=== PATIENT | female | born 1975 | race Caucasian/White ===

== ENCOUNTER 2017-04-16 19:04 | Emergency (ER) | payer SELFPAY ==
[2017-04-16] VITALS (15 sets, daily range): BP systolic 121–140; BP diastolic 56–84
[~2017-04-16] VITALS: Ht 172.7 cm; Wt 63.5 kg
[~2017-04-16 19:04] MED LIST: DiphenhydrAMINE 50mg/ml Inj IM ONE; Haloperidol 5mg/ml Inj IM ONE; LORazepam Inj 2mg/ml 1ml IM ONE
[2017-04-16] MEDS ORDERED: Haloperidol 5mg/ml Inj IM ONE (20:15)
[2017-04-16 21:14] LABS: BASOPHILS % (AUTO) 1.3 % (0.0-2.0); LYMPHOCYTES % (AUTO) 28.1 % (20.0-45.0); MEAN CORPUSCULAR HEMOGLOBIN 32.9 PG (27.0-31.0); MEAN CORPUSCULAR HGB CONC 33.1 G/DL (32.0-36.0); MEAN CORPUSCULAR VOLUME 99 FL (80-99); MEAN PLATELET VOLUME 7.3 FL (6.5-10.1); MONOCYTES % (AUTO) 6.7 % (1.0-10.0); NEUTROPHILS % (AUTO) 62.8 % (45.0-75.0); PLATELET COUNT 336 K/UL (150-450); RED BLOOD COUNT 4.13 M/UL (4.20-5.40); WHITE BLOOD COUNT 8.2 K/UL (4.8-10.8)
[2017-04-16 21:29] LABS: ACETAMINOPHEN < 10 ug/mL (10-30); ALANINE AMINOTRANSFERASE 11 U/L (3-33); ALBUMIN/GLOBULIN RATIO 1.4 (1.0-2.7); ALCOHOL < 10 mg/dL; ANION GAP 16 (5-15); ASPARTATE AMINO TRANSFERASE 15 U/L (5-40); CALCIUM 9.7 mg/dL (8.6-10.2); CARBON DIOXIDE 24 mEQ/L (20-30); CHLORIDE 99 mEQ/L (98-107); GLOMERULAR FILTRATION RATE > 60 mL/min (>60); HEMOLYSIS 4; POTASSIUM 3.8 mEQ/L (3.4-4.9); SODIUM 139 mEQ/L (135-145); TOTAL PROTEIN 7.3 g/dL (6.6-8.7)
--- NOTE | 2017-04-16 22:48 | Emergency Room Report ---
History of Present Illness General Chief Complaint: Altered Level of Consciousness Source: Patient, EMS (Yobany Vargas M.D.) Present Illness HPI The patient was brought in by EMS. Police were called them because the patient was walking in traffic on the [facility]. She was exposing herself and nearly naked. When she was arrested she stated she was diabetic, had chest pain and need medical evaluation. Therefore she was brought here. The patient refuses to answer questions with me and is screaming that she wants to go. She denies suicidal or homicidal ideation. She claims to be diabetic and . She reports that she has a schizoaffective disorder with bipolar tendencies. She denies suicidal or homicidal ideation at this time. Her history is quite questionable because she has disorganized thoughts. (Yobany Vargas M.D.) Allergies: Coded Allergies: UNABLE TO ASSESS (Unverified , 04/16/17) Patient History Limited by: medical condition Past Medical History: see triage record Now: No Reviewed Nursing Documentation: PMH: Agreed, PSxH: Agreed (Yobany Vargas M.D.) Nursing Documentation-PMH Past Medical History: No Stated History (Yobany Vargas M.D.) Review of Systems All Other Systems: negative except mentioned in HPI - question veracity (Yobany Vargas M.D.) Physical Exam Vital Signs Date Time Temp Pulse Resp B/P Pulse Ox O2 Delivery O2 Flow Rate FiO2 04/16/17 18:50 101 16 137/90 99 Room Air Sp02 EP Interpretation: reviewed, normal General Appearance: non-toxic, other - agitated, yelling, GCS 14, dishevelled Head: normocephalic, atraumatic Eyes: bilateral eye PERRL, bilateral eye Scleral Injection ENT: moist mucus membranes Neck: supple Respiratory: lungs clear, normal breath sounds Cardiovascular #1: regular rate, rhythm Cardiovascular #2: 2+ radial (R) Gastrointestinal: normal inspection, normal bowel sounds, non tender, no mass, non-distended, scaphoid Musculoskeletal: back normal, gait/station normal, normal range of motion Neurologic: alert, motor strength/tone normal, DTRs symmetric, sensory intact, oriented - X2 Psychiatric: no suicidal/homicidal ideation, other - delusional, abusive, yelling, not respond to de-escalation measures Skin: warm/dry, other - solarization, some picking lesions (Yobany Vargas M.D.) Medical Decision Making Diagnostic Impression: Primary Impression: Psychosis Qualified Codes: F29 - Unspecified psychosis not due to a substance or known physiological condition Additional Impression: Amphetamine abuse ER Course The patient presents with bizarre behavior and violence. Differential includes exacerbation of schizoaffective disorder, drug ingestion, elect right abnormalities amongst others. The patient is violence and does not respond escalation. She needs to be sedated. In orders for this to happen at this time she also needs to have behavioral restraints applied until sedation is achieved. Reevaluate with laboratory including urinalysis and drug screen. She is a nonfocal neurologic exam at this time and CT is not indicated as there is no evidence of any head trauma. Dr. Emery evaluated the patient and stated that she felt that the patient was continued to have high levels of antipsychotics to sedate her. She felt the patient was more exacerbation of schizophrenia and suggested the patient be placed on a hold. Patient may need to be reevaluated after her she is more coherent. Patient is a 5150 by [employer]. Tox + for amphetamines. Signed out to Dr. Caceres. Laboratory Tests Test 04/16/17 20:48 04/16/17 22:28 White Blood Count 8.2 K/UL (4.8-10.8) Red Blood Count 4.13 M/UL (4.20-5.40) L Hemoglobin 13.6 G/DL (12.0-16.0) Hematocrit 41.0 % (37.0-47.0) Mean Corpuscular Volume 99 FL (80-99) Mean Corpuscular Hemoglobin 32.9 PG (27.0-31.0) H Mean Corpuscular Hemoglobin Concent 33.1 G/DL (32.0-36.0) Red Cell Distribution Width 12.0 % (11.6-14.8) Platelet Count 336 K/UL (150-450) Mean Platelet Volume 7.3 FL (6.5-10.1) Neutrophils (%) (Auto) 62.8 % (45.0-75.0) Lymphocytes (%) (Auto) 28.1 % (20.0-45.0) Monocytes (%) (Auto) 6.7 % (1.0-10.0) Eosinophils (%) (Auto) 1.0 % (0.0-3.0) Basophils (%) (Auto) 1.3 % (0.0-2.0) Sodium Level 139 mEQ/L (135-145) Potassium Level 3.8 mEQ/L (3.4-4.9) Chloride Level 99 mEQ/L (98-107) Carbon Dioxide Level 24 mEQ/L (20-30) Anion Gap 16 (5-15) H Blood Urea Nitrogen 20 mg/dL (7-23) Creatinine 1.0 mg/dL (0.5-0.9) H Estimate Glomerular Filtration Rate > 60 mL/min (>60) Glucose Level 92 mg/dL (74-106) Calcium Level 9.7 mg/dL (8.6-10.2) Total Bilirubin 0.4 mg/dL (0.0-1.2) Aspartate Amino Transferase (AST) 15 U/L (5-40) Alanine Aminotransferase (ALT) 11 U/L (3-33) Alkaline Phosphatase 60 U/L (35-104) Total Creatine Kinase 204 U/L (26-140) H Total Protein 7.3 g/dL (6.6-8.7) Albumin 4.3 g/dL (3.5-5.2) Globulin 3.0 g/dL Albumin/Globulin Ratio 1.4 (1.0-2.7) Salicylates Level < 1 mg/dL (10-30) L Acetaminophen Level < 10 ug/mL (10-30) L Serum Alcohol < 10 mg/dL Urine HCG, Qualitative Negative Urine Opiates Screen Negative (NEGATIVE) Urine Barbiturates Screen Negative (NEGATIVE) Phencyclidine (PCP) Screen Negative (NEGATIVE) Urine Amphetamines Screen Positive (NEGATIVE) H Urine Benzodiazepines Screen Negative (NEGATIVE) Urine Cocaine Screen Negative (NEGATIVE) Urine Marijuana (THC) Screen Negative (NEGATIVE) (Yobany Vargas M.D.) ER Course Hospital Course 41 year-old female presents to ED for evaluation after running and streets naked Differential diagnoses include: Major depressive disorder, unspecified psychosis , EtOH abuse, drug abuse Clinical course Initially seen and evaluated by Dr. Vargas; please see his note for full history and physical She initially very agitated; required Haldol and Ativan for sedation Labs-electrolytes normal, aspirin/Tylenol levels normal, EtOH level normal, U. tox +amphetamines patient is on 5150 hold Patient is medically cleared and pending psychiatric evaluation. i. I feel this is a highly complex case requiring extensive working including EKG/Rhythm strip, Xray/CT/US, Blood/urine lab work, repeat exams while in ED, and administration of strong opiates/narcotics for pain control, admission to hospital or close patient follow up. Labs Test 04/16/17 20:48 04/16/17 22:28 White Blood Count 8.2 K/UL (4.8-10.8) Red Blood Count 4.13 M/UL (4.20-5.40) Hemoglobin 13.6 G/DL (12.0-16.0) Hematocrit 41.0 % (37.0-47.0) Mean Corpuscular Volume 99 FL (80-99) Mean Corpuscular Hemoglobin 32.9 PG (27.0-31.0) Mean Corpuscular Hemoglobin Concent 33.1 G/DL (32.0-36.0) Red Cell Distribution Width 12.0 % (11.6-14.8) Platelet Count 336 K/UL (150-450) Mean Platelet Volume 7.3 FL (6.5-10.1) Neutrophils (%) (Auto) 62.8 % (45.0-75.0) Lymphocytes (%) (Auto) 28.1 % (20.0-45.0) Monocytes (%) (Auto) 6.7 % (1.0-10.0) Eosinophils (%) (Auto) 1.0 % (0.0-3.0) Basophils (%) (Auto) 1.3 % (0.0-2.0) Sodium Level 139 mEQ/L (135-145) Potassium Level 3.8 mEQ/L (3.4-4.9) Chloride Level 99 mEQ/L (98-107) Carbon Dioxide Level 24 mEQ/L (20-30) Anion Gap 16 (5-15) Blood Urea Nitrogen 20 mg/dL (7-23) Creatinine 1.0 mg/dL (0.5-0.9) Estimat Glomerular Filtration Rate > 60 mL/min (>60) Glucose Level 92 mg/dL (74-106) Calcium Level 9.7 mg/dL (8.6-10.2) Total Bilirubin 0.4 mg/dL (0.0-1.2) Aspartate Amino Transf (AST/SGOT) 15 U/L (5-40) Alanine Aminotransferase (ALT/SGPT) 11 U/L (3-33) Alkaline Phosphatase 60 U/L (35-104) Total Creatine Kinase 204 U/L (26-140) Total Protein 7.3 g/dL (6.6-8.7) Albumin 4.3 g/dL (3.5-5.2) Globulin 3.0 g/dL Albumin/Globulin Ratio 1.4 (1.0-2.7) Salicylates Level < 1 mg/dL (10-30) Acetaminophen Level < 10 ug/mL (10-30) Serum Alcohol < 10 mg/dL Urine HCG, Qualitative Negative Urine Opiates Screen Negative (NEGATIVE) Urine Barbiturates Screen Negative (NEGATIVE) Phencyclidine (PCP) Screen Negative (NEGATIVE) Urine Amphetamines Screen Positive (NEGATIVE) Urine Benzodiazepines Screen Negative (NEGATIVE) Urine Cocaine Screen Negative (NEGATIVE) Urine Marijuana (THC) Screen Negative (NEGATIVE) (ELIZABETH CACERES M.D.) EKG Diagnostic Results Rate: normal Rhythm: NSR ST Segments: no acute changes (Yobany Vargas M.D.) Rhythm Strip Diag. Results EP Interpretation: yes Rhythm: NSR, no PVC's, no ectopy (Yobany Vargas M.D.) Status: improved (Yobany Vargas M.D.) Status: improved (ELIZABETH CACERES M.D.) Disposition: XFER TO PSYCH HOSP/UNIT Condition: Serious Referrals: NOT CHOSEN JATINDER/,REFERRING (PCP) Yobany Vargas M.D. Apr 16, 2017 22:48 ELIZABETH CACERES M.D. Apr 17, 2017 01:22
[2017-04-17 02:02] VITALS: BP 119/72
[2017-04-17 04:43] VITALS: BP 122/80
--- NOTE | 2017-04-17 10:02 | Diagnostic Imaging Report ---
Clinical Indication:PAIN Technique: 3 views of the right wrist Comparison: None Findings: No acute fractures. No dislocations spaces are preserved. There is an old fracture deformity of the proximal aspect of the fifth metacarpal Impression: No acute bony trauma This agrees with the preliminary interpretation provided by the emergency room physician
--- NOTE | 2017-04-17 22:15 | Consultation ---
DATE OF CONSULTATION: The patient was seen in the ED. CONSULTING PHYSICIAN: Rod Emery M.D. HISTORY OF PRESENT ILLNESS: The patient is a 41-year-old female who appears much older than her age. She looks very disheveled and malodorous. Apparently, the patient was brought into the hospital by [employer]. The patient was walking in the traffic on the . During evaluation, she presented with disorganized speech and behavior, anxiety, agitation, and delusional. She stated that Tita Cervantes is her grandmother and Jessica is her mother, and she was unable to be engaged. Answers the questions appropriately. Also she has a long history of alcoholism. She has been drinking excessively. She is homeless. She stated that she is diagnosed with schizoaffective disorder, bipolar type. She was screaming and severely agitated. She denied any suicidal or homicidal ideation. She was not able to provide any self-care plan. The patient denied amphetamine use; however, her system came back positive for amphetamines. MENTAL STATUS EXAMINATION: Alert and oriented x3. Mood is agitated. Affect is constricted, congruent with mood. Thought process is disorganized. Thought content, negative for suicidal or homicidal ideation. Positive for delusions. Insight and judgment are impaired. ASSESSMENT: [place] I Schizoaffective disorder. Alcohol dependence. Crystal methamphetamine abuse [place] II Deferred. [place] III As above. [place] IV High. [place] V 10. PLAN: 1. It is appeared that in addition to crystal meth use, the patient has history of mental illness, which is extensive. 2. She has many risk factors including being homeless; probable mental illness; no support system; medical condition, which is diabetes; and poor compliance. 3. If the patient continues to be disorganized and agitated, I do recommend a 5150 hold and transfer to the psych facility for grave disability. 4. The patient cleared after receiving the Haldol shot. The patient may be discharged home. Rod Emery M.D. DR: DARRYL JOB#: [id number] CC:
--- NOTE | 2017-04-20 20:24 | Cardiology Report ---
APPROVED REPORT EKG Measurement Heart [id number] Normal sinus rhythm with sinus arrhythmia Low voltage QRS Cannot rule out Anteroseptal infarct, age undetermined Abnormal ECG
== END 2017-04-17 04:35 ==
LOC: EDBD 19:04 → EMR 19:16
DX: F29 Unspecified psychosis not due to a substance or known physiological condition (principal); F15.10 Other stimulant abuse, uncomplicated; E11.9 Type 2 diabetes mellitus without complications
CPT/HCPCS: 36415; 73110; 80053; 80300; 81025; 82550; 85025; 93005; 96360; 96361; 96372; 99285; G0480; J1200; J1630; 80329